=== PATIENT | female | born 1970 | race Caucasian/White ===

== ENCOUNTER 2018-06-02 14:17 | Emergency (ER) | payer SELFPAY ==
--- NOTE | 2018-06-02 14:29 | PDOC ---
Rapid Medical Evaluation Time Seen by Provider: 06/02/18 14:27 Medical Evaluation: 06/02/18 14:27 I performed a brief in-person evaluation of this patient. Chief complaint: Here last night with chest pain, left AMA before trop #2, continues to have pain and SOB Pertinent physical exam findings: RRR, S1/S2, clear lungs I have ordered the following: Cardiac labs, CT chest non con (nodules on XR yesterday) Patient will proceed to the ED for further evaluation. Discharge Disposition - Diagnosis Chest pain Qualifiers: Chest pain type: other chest pain Qualified Code(s): R07.89 - Other chest pain ; R07.8 - Other chest pain - Referrals - Patient Instructions - Post Discharge Activity
[2018-06-02 14:59] VITALS: TEMP 97.8; BMI 23.8
--- NOTE | 2018-06-02 15:08 | PDOC ---
History of Present Illness - General Chief Complaint: Chest Pain Stated Complaint: CHEST PAIN Time Seen by Provider: 06/02/18 14:27 - History of Present Illness Initial Comments: The patient is a 47F w/ a history of COPD and GERD who presents for evaluation of 'several weeks' of substernal chest pain. She describes the pain as ' tightness', radiating to her left shoulder, worsened by movement and deep inspiration, and mildly alleviated w/ Tylenol/Advil. She also reports associated LUE tingling of the entire extremity that occurred yesterday and has since resolved. The patient reports that she has never had this type of pain before. She denies fevers/chills, vision changes, SOB, abdominal pain, N/V/C/D, or changes in strength. PCP: Stephen Berry MD 06/02/18 16:43 Past History - Past Medical History Allergies/Adverse Reactions: Allergies Allergy/AdvReac Type Severity Reaction Status Date / Time No Known Allergies Allergy Verified 06/02/18 14:39 Home Medications: Ambulatory Orders NK [No Known Home Medication] 06/02/18 COPD: No - Suicide/Smoking/Psychosocial Hx Smoking History: Current every day smoker Have you smoked in the past 12 months: Yes Number of Cigarettes Smoked Daily: 6 Information on smoking cessation initiated: Yes Hx Alcohol Use: No Drug/Substance Use Hx: No Review of Systems - Review of Systems Able to Perform ROS?: Yes Comments:: GENERAL/CONSTITUTIONAL: No fever or chills. No weakness HEAD, EYES, EARS, NOSE AND THROAT: No change in vision. No ear pain or discharge. No sore throat CARDIOVASCULAR: per HPI RESPIRATORY: Denies cough, hemoptysis GASTROINTESTINAL: No nausea, vomiting, diarrhea or constipation GENITOURINARY: No dysuria, frequency, or change in urination MUSCULOSKELETAL: No joint or muscle swelling or pain. No neck or back pain SKIN: No rash NEUROLOGIC: No headache, vertigo, loss of consciousness, or change in strength/ sensation ENDOCRINE: No increased thirst. No abnormal weight change HEMATOLOGIC/LYMPHATIC: No anemia, easy bleeding, or history of blood clots ALLERGIC/IMMUNOLOGIC: No hives or skin allergy 06/02/18 15:07 Is the patient limited German proficient: No *Physical Exam - Vital Signs Last Vital Signs Temp Pulse Resp BP Pulse Ox 97.8 F 68 16 129/51 L 99 06/02/18 14:30 06/02/18 14:30 06/02/18 14:30 06/02/18 14:30 06/02/18 14:30 - Physical Exam Comments: GENERAL: Awake, alert, and fully oriented, in no acute distress HEAD: No signs of trauma, normocephalic, atraumatic EYES: PERRLA, EOMI, sclera anicteric, conjunctiva clear ENT: Hearing grossly normal, nares patent, oropharynx clear without exudates. Moist mucosa LUNGS: No distress, speaks full sentences, clear to auscultation bilaterally HEART: Regular rate and rhythm, normal S1 and S2, no murmurs appreciated, peripheral pulses normal and equal bilaterally ABDOMEN: Soft, nontender, normoactive bowel sounds. No guarding, no rebound. No masses EXTREMITIES : Normal inspection, Normal range of motion, no edema. No clubbing or cyanosis NEUROLOGICAL: Cranial nerves II through XII grossly intact. Normal speech, no focal sensorimotor deficits SKIN: Warm, Dry 06/02/18 15:08 Moderate Sedation - Procedure Monitoring Vital Signs: Procedure Monitoring Vital Signs Temperature 97.8 F 06/02/18 14:30 Pulse Rate 68 06/02/18 14:30 Respiratory Rate 16 06/02/18 14:30 Blood Pressure 129/51 L 06/02/18 14:30 O2 Sat by Pulse Oximetry (%) 99 06/02/18 14:30 ED Treatment Course - LABORATORY CBC & Chemistry Diagram: 06/02/18 14:52 06/02/18 14:52 Medical Decision Making - Medical Decision Making The patient is a 47F w/ a history of COPD and GERD who presents for evaluation of 'several weeks' of atypical chest pain Ddx: ACS, considered PNA, not likely AD/TAA ED Course CMP, CBC, Trop I CT chest ECG No leukocytosis No anemia Lytes wnl No AIDE LFTs wnl Trop I neg CT w/o PNA, PNX -Small lingular nodule noted, will need 3m f/u Plan for D/C w/ PCP f/u Discharge instructions and return precautions given Patient in agreement and verbalized understanding Dispo: home 06/02/18 23:01 *DC/Admit/Observation/Transfer Diagnosis at time of Disposition: Chest pain Qualifiers: Chest pain type: other chest pain Qualified Code(s): R07.89 - Other chest pain - Discharge Dispostion Disposition: HOME Condition at time of disposition: Stable Decision to Admit order: No - Referrals Referrals: Stephen Berry MD [Primary Care Provider] - - Patient Instructions Printed Discharge Instructions: DI for Atypical Chest Pain Additional Instructions: You were seen in the Emergency Department for evaluation of chest pain. You were not found to have evidence of heart attack, pneumothorax, or pneumonia. Review the handout provided at discharge. Follow up with your primary care provider. Return to the Emergnecy Department if you develop fevers/chills, worsening symptoms, trouble breathing, vomiting, or any new/concerning symptoms. - Post Discharge Activity
[2018-06-02 15:30] LABS: INR 0.97 (0.83-1.09); PROTHROMBIN TIME (PATIENT) 11.4 SEC (9.7-13.0)
[2018-06-02 15:41] LABS: BASO % 0.9 % (0-2.0); EOS % 3.5 % (0-4.5); HEMOGLOBIN 10.2 GM/dL (10.7-15.3); LYMPH % 36.7 % (8-40); MCH 25.4 pg (25.7-33.7); MEAN CELL VOLUME 77.2 fl (80-96); MEAN PLT VOLUME 7.8 fl (7.5-11.1); MONO % 8.8 % (3.8-10.2); NEUT % 50.1 % (42.8-82.8); PLATELET COUNT 358 K/MM3 (134-434); RBC 4.01 M/mm3 (3.60-5.2); RDW 18.4 % (11.6-15.6); WHITE BLOOD COUNT 6.1 K/mm3 (4.0-10.0)
[2018-06-02 15:50] LABS: ALBUMIN 3.3 g/dl (3.4-5.0); ALK PHOS 58 U/L (45-117); ANION GAP 7 MMOL/L (8-16); BILIRUBIN,TOTAL 0.2 mg/dL (0.2-1); BLOOD UREA NITROGEN 23 mg/dL (7-18); CALCIUM 8.8 mg/dL (8.5-10.1); CHLORIDE 106 mmol/L (98-107); CO2 25 mmol/L (21-32); CREATININE 0.6 mg/dL (0.55-1.3); GLUCOSE,RANDOM 92 mg/dL (74-106); POTASSIUM 4.1 mmol/L (3.5-5.1); SGOT/AST 12 U/L (15-37); SGPT/ALT 13 U/L (13-61); SODIUM 138 mmol/L (136-145)
[2018-06-02 17:50] VITALS: BP 122/60; PULSE 69
--- NOTE | 2018-06-02 17:53 | PDOC ---
Attending Attestation - HPI HPI: 06/02/18 17:59 The patient is a 47 year old female, with a significant past medical history of COPD and GERD, who presents to the emergency department with, several weeks of pleuritic chest pain described as substernal tightness radiating to the left shoulder worsening with movement. She denies recent fevers, chills, headache or dizziness. She denies recent nausea, vomit, diarrhea or constipation. She denies recent dysuria, frequency, urgency or hematuria. Allergies: NKDA <Phillip Cesar - Last Filed: 06/02/18 17:59> - Resident Resident Name: Chino Burgos - ED Attending Attestation I have performed the following: I have examined & evaluated the patient, The case was reviewed & discussed with the resident, I agree w/resident's findings & plan, Exceptions are as noted - Physicial Exam PE: GENERAL: Awake, alert, and fully oriented, in no acute distress HEAD: No signs of trauma EYES: PERRLA, EOMI, sclera anicteric, conjunctiva clear ENT: Auricles normal inspection, hearing grossly normal, nares patent, oropharynx clear without exudates. Moist mucosa NECK: Normal ROM, supple, no lymphadenopathy, JVD, or masses LUNGS: Breath sounds equal, clear to auscultation bilaterally. No wheezes, and no crackles HEART: Regular rate and rhythm, normal S1 and S2, no murmurs, rubs or gallops ABDOMEN: Soft, nontender, normoactive bowel sounds. No guarding, no rebound. No masses EXTREMITIES: Normal range of motion, no edema. No clubbing or cyanosis. No cords, erythema, or tenderness NEUROLOGICAL: Cranial nerves II through XII grossly intact. Normal speech, normal gait. Motor and sensation intact SKIN: Warm, Dry, normal turgor, no rashes or lesions noted. - Medical Decision Making Pt with reproducible pain, negative troponin. Seen in ED last night with workup. Stable for DC home with outpatient f/u. <Yuliya Patel - Last Filed: 06/06/18 08:54> Attestations - Attestations 06/02/18 17:59 Documentation prepared by Phillip Cesar, acting as biomedical engineering aide for Yuliya Patel MD. <Phillip Cesar - Last Filed: 06/02/18 17:59>
--- NOTE | 2018-06-03 11:56 | EKG ---
Test Reason : Blood Pressure : / mmHG Vent. Rate : 068 BPM Atrial Rate : 068 BPM P-R Int : 132 ms QRS Dur : 090 ms QT Int : 386 ms P-R-T Axes : 079 069 052 degrees QTc Int : 410 ms NORMAL SINUS RHYTHM WITH SINUS ARRHYTHMIA NORMAL ECG NO PREVIOUS ECGS AVAILABLE Confirmed by OSMAN LAW, JAVIER ([id number]) on 06/03/2018 11:56:30 AM Referred By: Confirmed By:JAVIER BREWER MD
== END 2018-06-02 17:48 | disposition home or self-care (01) ==
LOC: JER 14:17
DX: R07.89 Other chest pain (principal); Z87.09 Personal history of other diseases of the respiratory system; Z87.19 Personal history of other diseases of the digestive system; F17.210 Nicotine dependence, cigarettes, uncomplicated
CPT/HCPCS: 36415; 71250-TC; 80053; 82550; 84484; 85025; 85610; 93005; 93010; 99282-25